=== PATIENT | female | born 1995 | race Caucasian/White ===

== ENCOUNTER → 2017-10-19 | Outpatient (CLI) | payer BC, OTHER ==
[~2017-10-19] MED LIST: AMOCLA875 PO; Bactrim Ds Tab1 EACH PO; DIPH50 PO; IBUP600 PO; METPRE4DP PO; ONDA4ODT MM; Pepcid40 MG PO; Pyridium100 MG PO
[2017-10-19 16:57] LABS: Specimen Source CERVIX
[2017-10-20 09:46] LABS: Source Cervix
[2017-10-20 09:49] LABS: Source Cervix
[2017-10-21 12:14] LABS: HPV Genotype 16 Not Detected (NOTDET); HPV Genotype 18 Not Detected (NOTDET)
[2017-10-22 16:53] LABS: HPV High Risk Other Detected (NOTDET)
== END ==
LOC: OLS 16:08 → LAB SHORT 16:08
PROVIDERS: Nurse Practitioner Women's Health
DX: Z12.4 Encounter for screening for malignant neoplasm of cervix (principal); Z11.3 Encounter for screening for infections with a predominantly sexual mode of transmission
CPT/HCPCS: 87491; 87591

== ENCOUNTER 2018-01-01 07:12 | Day surgery (SDC) | payer BC, OTHER ==
[~2018-01-01] VITALS: Ht 177.8 cm; Wt 89.4 kg
[~2018-01-01 07:12] MED LIST changes: +FLUO10 PO; +HYOS.125 SL; +L-METHYLFOLATE15 M1 PO; +LAMO100 PO; +LEVSOD50 PO; +LITH300C PO; +METO100ER PO; +Omeprazole20 M1 PO; +XULANE PATCH1 EACH TD
== END 2018-01-01 10:34 | disposition home or self-care (01) ==
LOC: ORSCMMR 07:12 → ORD 08:30 → ORSCMMR 10:34
PROVIDERS: Surgery
PROC: 0DBQXZZ Excision of Anus, External Approach (ICD-10-PCS; principal; 2018-01-01 08:30)
DX: K64.4 Residual hemorrhoidal skin tags (principal); K21.9 Gastro-esophageal reflux disease without esophagitis; I10 Essential (primary) hypertension; E78.5 Hyperlipidemia, unspecified; Z79.899 Other long term (current) drug therapy
CPT/HCPCS: 88304; J2250; J3010; J7120

== ENCOUNTER → 2018-02-25 | Outpatient (CLI) | payer BC | END | disposition home or self-care (01) | LOC: LAB EV 11:51 → LAB SHORT 11:51 | DX: N39.0 Urinary tract infection, site not specified (principal) | CPT/HCPCS: 87086 ==

== ENCOUNTER 2019-07-22 18:37 | Emergency (ER) | payer OTHER, BC ==
[~2019-07-22] VITALS: Ht 177.8 cm; Wt 99.8 kg
== END 2019-07-22 21:01 | disposition home or self-care (01) ==
LOC: ER 18:37
DX: S30.0XXA Contusion of lower back and pelvis, initial encounter (principal); Z88.0 Allergy status to penicillin; Z88.6 Allergy status to analgesic agent; Z88.5 Allergy status to narcotic agent; Z88.8 Allergy status to other drugs, medicaments and biological substances; W18.30XA Fall on same level, unspecified, initial encounter
CPT/HCPCS: 72100; 99283-25